=== PATIENT | female | born 1955 | race Two or more races ===

== ENCOUNTER 2024-10-04 17:29 | Emergency (ER) | payer MEDICAID ==
[~2024-10-04] VITALS: Ht 152.4 cm; Wt 79.0 kg
[2024-10-04 17:34] VITALS: BP 165/66; RESP 18; TEMP 96.9
[2024-10-04 18:15] LABS: STREP A SCREEN NEGATIVE (Neg)
[2024-10-04] MEDS ORDERED: AMOX500C2 PO (19:05)
[2024-10-04] MEDS ORDERED: PRED10TA23 PO (19:05)
[2024-10-04 19:17] VITALS: PULSE 78; O2SAT 97
== END 2024-10-04 19:18 | disposition home or self-care (01) ==
LOC: ER 17:30
DX: J20.8 Acute bronchitis due to other specified organisms (principal); B96.89 Other specified bacterial agents as the cause of diseases classified elsewhere
CPT/HCPCS: 71045; 87081; 87880; 99283; 99284